=== PATIENT | male | born 1940 | race Caucasian/White ===

== ENCOUNTER 2016-08-15 05:34 | Emergency (ER) | payer MEDICARE, MEDICAID ==
[~2016-08-15] VITALS: Ht 182.9 cm; Wt 85.5 kg
[2016-08-15 05:36] VITALS: BP 128/76
== END 2016-08-15 06:40 | disposition left against medical advice (07) ==
LOC: ED 06:34
DX: J00 Acute nasopharyngitis [common cold] (principal); Z53.21 Procedure and treatment not carried out due to patient leaving prior to being seen by health care provider

== ENCOUNTER 2017-05-04 00:18 | Emergency (ER) | payer MEDICARE, MEDICAID ==
[~2017-05-04] VITALS: Ht 182.9 cm; Wt 80.7 kg
[2017-05-04 01:15] LABS: HEMATOCRIT 48.3 % (39.2-51.8); HEMOGLOBIN 16.1 g/dL (13.7-18.0); WHITE BLOOD COUNT 10.5 x10^3/uL (3.4-10)
[2017-05-04 01:28] LABS: BLOOD UREA NITROGEN 25 mg/dL (7-18)
[2017-05-04 01:35] LABS: IS PT STATUS REG ER OR PRE ER? YES
[2017-05-04 02:39] VITALS: BP 115/73
== END 2017-05-04 02:40 | disposition home or self-care (01) ==
LOC: ED 00:56
DX: S09.90XA Unspecified injury of head, initial encounter (principal); F07.81 Postconcussional syndrome; W19.XXXA Unspecified fall, initial encounter; Y93.89 Activity, other specified; Y92.009 Unspecified place in unspecified non-institutional (private) residence as the place of occurrence of the external cause; Y99.9 Unspecified external cause status; Z88.8 Allergy status to other drugs, medicaments and biological substances
CPT/HCPCS: 36415; 70450; 72125; 80048; 84484; 85025; 93005; 99285